=== PATIENT | male | born 1950 | race American Indian/Alaskan Native ===

== ENCOUNTER 2019-07-09 16:19 | Observation (INO) | payer MEDICARE ==
--- NOTE | 2019-07-09 16:47 | Event Note ---
ED Screening Note Date of service: 07/09/19 Time: 16:41 ED Screening Note: Pt presents to ed c/o 2 syncopal episodes within minutes of each other today. He states he was sitting at table eating, then he started feeling dizzy. He states his neice told him he passed out and layed him on floor. He states they did chest compressions on him. When they revived him, he then passed again. Unsure of duration of syncopal episodes. Pt reports feeling better now. He denies any chest pain, sob, n/v/d, focal weakness, vision changes or speech changes. he denies hx of CAD or CVA. +hx of DM. This initial assessment/diagnostic orders/clinical plan/treatment(s) is/are subject to change based on patients health status, clinical progression and re- assessment by fellow clinical providers in the ED. Further treatment and workup at subsequent clinical providers discretion. Patient/guardian urged not to elope from the ED as their condition may be serious if not clinically assessed and managed. Initial orders include: labs, EKG cxr UA CT head
[2019-07-09] MEDS ORDERED: SODIUM CHLORIDE 0.9% 1000 ML 1,000 ML IV ONE (16:48)
--- NOTE | 2019-07-09 17:41 | XRay Report ---
CHEST 2 VIEWS INDICATION / CLINICAL INFORMATION: Syncope. COMPARISON: None available. FINDINGS: SUPPORT DEVICES: None. HEART / MEDIASTINUM: Heart size is within normal limits with left ventricular configuration. Tortuosi ty of the thoracic aorta with atherosclerotic changes. LUNGS / PLEURA: No significant pulmonary or pleural abnormality. No pneumothorax. ADDITIONAL FINDINGS: Degenerative changes are seen in the right shoulder and thoracolumbar spine. IMPRESSION: 1. No acute findings. Signer Name: Michele Mason MD Signed: 07/09/2019 5:37 PM Workstation Name: [id number]
--- NOTE | 2019-07-09 17:46 | Cat Scan Report ---
CT head without contrast HISTORY: Syncope. TECHNIQUE: Axial imaging performed from the skull apex through the skull base without the use of con trast. All CT scans at this location are performed using CT dose reduction for ALARA by means of aut omated exposure control. COMPARISON: None FINDINGS: Parenchyma: No acute intracranial hemorrhage or parenchymal abnormality. Ventricles: There is mild diffuse brain atrophy with commensurate ventricular enlargement which is l ikely age appropriate. Soft tissues: Soft tissues including the orbits appear normal. Bones: No acute osseous abnormality. Sinuses: Sinuses and mastoid air cells are clear. IMPRESSION: No acute abnormality. Signer Name: Ambrosio Anderson MD Signed: 07/09/2019 5:42 PM Workstation Name: [id number]
[2019-07-09 18:25] LABS: Basophils # (Auto) 0.1 K/mm3 (0.0-0.1); Basophils % (Auto) 1.1 % (0.0-1.8); Eosinophils # (Auto) 0.8 K/mm3 (0.0-0.4); Eosinophils % (Auto) 9.5 % (0.0-4.3); Hemoglobin 12.6 gm/dl (11.8-15.2); Lymphocytes % (Auto) 24.2 % (13.4-35.0); Mean Corpuscular HGB Conc 33 % (32-34); Mean Corpuscular Volume 88 fl (84-94); Monocytes # (Auto) 0.3 K/mm3 (0.0-0.8); Monocytes % (Auto) 4.1 % (0.0-7.3); Platelet Count 337 K/mm3 (140-440); Red Blood Count 4.32 M/mm3 (3.65-5.03); Red Cell Distribution Width 14.9 % (13.2-15.2)
[2019-07-09 18:47] LABS: Alanine Aminotransferase 11 units/L (7-56); BUN/Creatinine Ratio 15; Blood Urea Nitrogen 24 mg/dL (9-20); Calcium 9.3 mg/dL (8.4-10.2); Hemolysis Index 4
[2019-07-09] MEDS ORDERED: SODIUM CHLORIDE 0.9% 1000 ML 1,000 ML ONE (21:32)
[2019-07-09 21:52] LABS: Bilirubin,Urine NEG (Negative); Blood,Urine NEG (Negative); Color,Urine Amber (Yellow); Mucus,Urine 2+ /HPF
--- NOTE | 2019-07-09 22:13 | Emergency Department Report ---
ED Syncope HPI - General Chief Complaint: Syncope Stated Complaint: DIZZINESS Time Seen by Provider: 07/09/19 16:41 Source: patient, family Exam Limitations: no limitations - History of Present Illness Initial Comments: 68-year-old male with a past medical history of non-insulin depended diabetes or hypertension presents to the hospital complaining of syncope prior to arrival. Patient states he was eating, felt dizzy, rembers asking for orange juice, then family member states he passed out. He regained consciousness and then passed out again without for an extended amount of time. Family was concerned that he did not have a pulse and initiated chest compressions. Upon EMS arrival Accu- Chek was 248. Patient denies headache, chest pain, shortness breath, nausea, vomiting, diaphoresis, palpitations, calf tenderness, leg edema, history of CAD, PE, or DVT. Patient traveled here 1 week ago from [place] via [place] and his pmd is located back home. - Related Data Allergies/Adverse Reactions: Allergies quinine Allergy (Verified 07/09/19 16:33) Itching ED Review of Systems ROS: Stated complaint: DIZZINESS Other details as noted in HPI Comment: All other systems reviewed and negative ED Past Medical Hx - Past Medical History Previous Medical History?: Yes Hx Hypertension: Yes Hx Diabetes: Yes - Surgical History Past Surgical History?: No - Social History Smoking Status: Current Every Day Smoker Substance Use Type: Marijuana ED Physical Exam - General Limitations: No Limitations - Other Other exam information: General: No acute distress Head: Atraumatic Eyes: normal appearance ENT: Moist mucous membranes Neck: Normal appearance, no midline tenderness Chest: Clear to auscultation bilaterally CV: Regular rate and rhythm Abdomen: Soft, normal bowel sounds, nontender, nondistended, no rebound or guarding Back: Normal inspection Extremity: Normal inspection infection, full range of motion Neuro: Alert O x 3, no facial asymmetry, speech clear, no gross motor sensory deficit, finger nose finger function intact Psych: Appropriate behavior Skin: No rash ED Course Vital Signs 07/09/19 07/09/19 07/09/19 16:31 21:45 21:59 Temperature 97.7 F Pulse Rate 87 63 Respiratory 18 15 15 Rate Blood Pressure 147/84 Blood Pressure 144/84 [Right] O2 Sat by Pulse 97 100 Oximetry ED Medical Decision Making - Lab Data Result diagrams: 07/09/19 17:47 07/09/19 17:47 Lab Results 07/09/19 07/09/19 07/09/19 Range/Units 16:44 17:47 17:47 WBC 8.3 (4.5-11.0) K/mm3 RBC 4.32 (3.65-5.03) M/mm3 Hgb 12.6 (11.8-15.2) gm/dl Hct 38.0 (35.5-45.6) % MCV 88 (84-94) fl MCH 29 (28-32) pg MCHC 33 (32-34) % RDW 14.9 (13.2-15.2) % Plt Count 337 (140-440) K/mm3 Lymph % (Auto) 24.2 (13.4-35.0) % Runnels % (Auto) 4.1 (0.0-7.3) % Eos % (Auto) 9.5 H (0.0-4.3) % Baso % (Auto) 1.1 (0.0-1.8) % Lymph # 2.0 (1.2-5.4) K/mm3 Runnels # 0.3 (0.0-0.8) K/mm3 Eos # 0.8 H (0.0-0.4) K/mm3 Baso # 0.1 (0.0-0.1) K/mm3 Seg Neutrophils % 61.1 (40.0-70.0) % Seg Neutrophils # 5.1 (1.8-7.7) K/mm3 Sodium 138 (137-145) mmol/L Potassium 4.4 (3.6-5.0) mmol/L Chloride 102.3 (98-107) mmol/L Carbon Dioxide 24 (22-30) mmol/L Anion Gap 16 mmol/L BUN 24 H (9-20) mg/dL Creatinine 1.6 H (0.8-1.5) mg/dL Estimated GFR 43 ml/min BUN/Creatinine Ratio 15 % Glucose 227 H (75-100) mg/dL POC Glucose 248 H (70-105) Calcium 9.3 (8.4-10.2) mg/dL Magnesium 2.10 (1.7-2.3) mg/dL Total Bilirubin 0.20 (0.1-1.2) mg/dL AST 12 (5-40) units/L ALT 11 (7-56) units/L Alkaline Phosphatase 127 (35-129) units/L Troponin T < 0.010 (0.00-0.029) ng/mL Total Protein 7.5 (6.3-8.2) g/dL Albumin 4.0 (3.9-5) g/dL Albumin/Globulin Ratio 1.1 % Urine Color (Yellow) Urine Turbidity (Clear) Urine pH (5.0-7.0) Ur Specific Leverett (1.003-1.030) Urine Protein (Negative) mg/dL Urine Glucose (UA) (Negative) mg/dL Urine Ketones (Negative) mg/dL Urine Blood (Negative) Urine Nitrite (Negative) Urine Bilirubin (Negative) Urine Urobilinogen (<2.0) mg/dL Ur Leukocyte Esterase (Negative) Urine WBC (Auto) (0.0-6.0) /HPF Urine RBC (Auto) (0.0-6.0) /HPF U Epithel Cells (Auto) (0-13.0) /HPF Urine Mucus /HPF 07/09/19 Range/Units Unknown WBC (4.5-11.0) K/mm3 RBC (3.65-5.03) M/mm3 Hgb (11.8-15.2) gm/dl Hct (35.5-45.6) % MCV (84-94) fl MCH (28-32) pg MCHC (32-34) % RDW (13.2-15.2) % Plt Count (140-440) K/mm3 Lymph % (Auto) (13.4-35.0) % Runnels % (Auto) (0.0-7.3) % Eos % (Auto) (0.0-4.3) % Baso % (Auto) (0.0-1.8) % Lymph # (1.2-5.4) K/mm3 Runnels # (0.0-0.8) K/mm3 Eos # (0.0-0.4) K/mm3 Baso # (0.0-0.1) K/mm3 Seg Neutrophils % (40.0-70.0) % Seg Neutrophils # (1.8-7.7) K/mm3 Sodium (137-145) mmol/L Potassium (3.6-5.0) mmol/L Chloride (98-107) mmol/L Carbon Dioxide (22-30) mmol/L Anion Gap mmol/L BUN (9-20) mg/dL Creatinine (0.8-1.5) mg/dL Estimated GFR ml/min BUN/Creatinine Ratio % Glucose (75-100) mg/dL POC Glucose (70-105) Calcium (8.4-10.2) mg/dL Magnesium (1.7-2.3) mg/dL Total Bilirubin (0.1-1.2) mg/dL AST (5-40) units/L ALT (7-56) units/L Alkaline Phosphatase (35-129) units/L Troponin T (0.00-0.029) ng/mL Total Protein (6.3-8.2) g/dL Albumin (3.9-5) g/dL Albumin/Globulin Ratio % Urine Color Марина (Yellow) Urine Turbidity Clear (Clear) Urine pH 5.0 (5.0-7.0) Ur Specific [place]rett 1.025 (1.003-1.030) Urine Protein 100 mg/dl (Negative) mg/dL Urine Glucose (UA) Neg (Negative) mg/dL Urine Ketones Tr (Negative) mg/dL Urine Blood Neg (Negative) Urine Nitrite Neg (Negative) Urine Bilirubin Neg (Negative) Urine Urobilinogen 2.0 (<2.0) mg/dL Ur Leukocyte Esterase Neg (Negative) Urine WBC (Auto) 1.0 (0.0-6.0) /HPF Urine RBC (Auto) 3.0 (0.0-6.0) /HPF U Epithel Cells (Auto) 1.0 (0-13.0) /HPF Urine Mucus 2+ /HPF - EKG Data -: EKG Interpreted by Ms EKG shows normal: sinus rhythm, ST-T waves (lvh, rpol, no stemi) Rate: normal (69) - EKG Data When compared to previous EKG there are: previous EKG unavailable - Radiology Data Radiology results: report reviewed CHEST 2 VIEWS INDICATION / CLINICAL INFORMATION: Syncope. COMPARISON: None available. FINDINGS: SUPPORT DEVICES: None. HEART / MEDIASTINUM: Heart size is within normal limits with left ventricular configuration. Tortuosity of the thoracic aorta with atherosclerotic changes. LUNGS / PLEURA: No significant pulmonary or pleural abnormality. No pneumothorax. ADDITIONAL FINDINGS: Degenerative changes are seen in the right shoulder and thoracolumbar spine. IMPRESSION: 1. No acute findings. CT head without contrast HISTORY: Syncope. TECHNIQUE: Axial imaging performed from the skull apex through the skull base without the use of contrast. All CT scans at this location are performed using CT dose reduction for ALARA by means of automated exposure control. COMPARISON: None FINDINGS: Parenchyma: No acute intracranial hemorrhage or parenchymal abnormality. Ventricles: There is mild diffuse brain atrophy with commensurate ventricular enlargement which is likely age appropriate. Soft tissues: Soft tissues including the orbits appear normal. Bones: No acute osseous abnormality. Sinuses: Sinuses and mastoid air cells are clear. IMPRESSION: No acute abnormality. - Medical Decision Making Patient presents to the hospital after syncopal episode. No identified cause after ED workup. Patient is admitted to the hospital for further treatment. Patient did receive IV fluids mild renal insufficiency and possible dehydration. - Differential Diagnosis arrhythmia, [place], unstable angina, PE, anemia, vasovagal Critical Care Time: No Critical care attestation.: If time is entered above; I have spent that time in minutes in the direct care of this critically ill patient, excluding procedure time. ED Disposition Clinical Impression: Syncope, Mild renal insufficiency, HTN (hypertension), Diabetes Disposition: OP ADMIT IP TO THIS HOSP Is pt being admited?: Yes Condition: Stable Time of Disposition: 22:19 (Dr Pineda/hosp)
--- NOTE | 2019-07-09 22:26 | History and Physical Report ---
History of Present Illness Date of examination: 07/09/19 History of present illness: 69 year old man history of hypertension, diabetes, hyperlipidemia was brought to the emergency room [facility] for evaluation of passing out. He stated while he was eating and he got dizzy, drank some orange juice and then he passed out for 2 minutes (family member at bedside. She also stated that the past status second time which is much longer, he had no pulse and her daughter started CPR until paramedics arrived. Blood sugar was 216, other vials were stable. Chest travel 4 days ago from [place] Review Of Systems: Constitutional: no weight loss, fever, chills Ears, eyes, nose, mouth and throat: no nasal congestion, no nasal discharge, no sinus pressure, blurry vision, diplopia Neck: No neck pain or rigidity. Cardiovascular: No palpitations, chest pain Respiratory: No shortness of breath, cough Gastrointestinal: No hematochezia, abdominal pain Genitourinary : no dysuria, frequency Musculoskeletal: no muscle ache , joint pain Integumentary: no rash, no pruritis Neurological: no parathesias, focal weakness Endocrine: no cold or heat intolerance, no polyuria or polydipsia Hematologic/Lymphatic: no easy bruising, no easy bleeding, no gland swelling Allergic/Immunologic: no urticaria, no angioedema. PAST MEDICAL HISTORY:hypertension, diabetes, hyperlipidemia PAST SURGICAL HISTORY: hernia FAMILY HISTORY:hypertension, diabetes SOCIAL HISTORY: +tobacco, + alcohol, + marijuana Medications and Allergies Allergies Allergy/AdvReac Type Severity Reaction Status Date / Time quinine Allergy Itching Verified 07/09/19 16:33 Home Medications Medication Instructions Recorded Confirmed Last Taken Type Aspirin [Aspirin BABY CHEW TAB] 81 mg PO QDAY 07/09/19 07/09/19 Unknown History AtorvaSTATin [Lipitor] 40 mg PO QHS 07/09/19 07/09/19 Unknown History Gabapentin 300 mg PO BID 07/09/19 07/09/19 Unknown History Guanfacine HCl [Guanfacine HCl ER] 1 mg PO QHS 07/09/19 07/09/19 Unknown History Linagliptin [Tradjenta] 5 mg PO QDAY 07/09/19 07/09/19 Unknown History Losartan/Hydrochlorothiazide 1 each PO DAILY 07/09/19 07/09/19 Unknown History [Losartan-Hctz 100-25 mg Tab] NIFEdipine [Nifedipine ER] 60 mg PO DAILY 07/09/19 07/09/19 Unknown History Spironolactone [Aldactone] 25 mg PO QDAY 07/09/19 07/09/19 Unknown History glipiZIDE XL [Glucotrol Xl] 10 mg PO QAM 07/09/19 07/09/19 Unknown History metFORMIN [Glucophage] 2,000 mg PO QDAY 07/09/19 07/09/19 Unknown History Exam - Physical Exam Narrative exam: General Apperance: The patient sitting in bed no acute distress HEENT: Normocephalic, atraumatic. Pupils equally round and reactive to light, extraocular movement intact, and no sclericterus or JVD or thyromegaly or nodule. Neck supple, no carotid bruit, mucous membranes moist, no exudate or erythema Heart: S1-S2, regular is rhythm Lungs: Clear to auscultation bilaterally, breathing comfortable Abdomen: Positive bowel sounds, soft, nontender, nondistended, no organomegaly Extremities: No edema cyanosis clubbing Skin: no rash, nodule, warm and dry Neuro:CN 2 -12 intact, motor/sensory intact, speech is fluent - Constitutional Vitals: Temp Pulse Resp BP Pulse Ox 97.7 F 63 15 144/84 100 07/09/19 16:31 07/09/19 21:45 07/09/19 21:59 07/09/19 21:45 07/09/19 21:45 Results - Labs CBC & Chem 7: 07/10/19 05:41 07/10/19 05:41 Labs: Abnormal lab results 07/09/19 07/09/19 07/09/19 Range/Units 16:44 17:47 17:47 Eos % (Auto) 9.5 H (0.0-4.3) % Eos # 0.8 H (0.0-0.4) K/mm3 BUN 24 H (9-20) mg/dL Creatinine 1.6 H (0.8-1.5) mg/dL Glucose 227 H (75-100) mg/dL POC Glucose 248 H (70-105) - Imaging and Cardiology EKG: image reviewed Chest x-ray: image reviewed CT Scan - head: report reviewed Assessment and Plan Assessment Syncope Renal insufficiency Hypertension Diabetes Hyperlipidemia Plan Admit to medicine Check reticulocyte enzymes, d-dimer, echo, cadrotid doppler Check fingersticks and initiate insulin sliding scale Hold diuretics for now DVT prophylaxis
[2019-07-09] MEDS ORDERED: ONDANSETRON 4 MG/2 ML INJ IV PRN (22:55)
[2019-07-09] MEDS ORDERED: ACETAMINOPHEN 325 MG TAB PO PRN (22:55)
[2019-07-09] MEDS ORDERED: DEXTROSE 50% IN WATER (25GM) 50 ML SYRINGE IV PRN (23:11)
[2019-07-09 23:48] LABS: Creatine Kinase MB 5.2 ng/mL (0.0-4.0)
[2019-07-10 05:32] VITALS: BP 166/83
[2019-07-10 06:47] LABS: Basophils # (Auto) 0.1 K/mm3 (0.0-0.1); Eosinophils # (Auto) 1.1 K/mm3 (0.0-0.4); Eosinophils % (Auto) 14.2 % (0.0-4.3); Hematocrit 34.8 % (35.5-45.6); Hemoglobin 11.8 gm/dl (11.8-15.2); Lymphocytes # (Auto) 2.5 K/mm3 (1.2-5.4); Lymphocytes % (Auto) 32.5 % (13.4-35.0); Mean Corpuscular HGB Conc 34 % (32-34); Mean Corpuscular Volume 88 fl (84-94); Monocytes # (Auto) 0.6 K/mm3 (0.0-0.8); Monocytes % (Auto) 7.4 % (0.0-7.3); Platelet Count 291 K/mm3 (140-440); Red Blood Count 3.96 M/mm3 (3.65-5.03)
[2019-07-10 07:10] LABS: BUN/Creatinine Ratio 18; Blood Urea Nitrogen 24 mg/dL (9-20); Calcium 8.8 mg/dL (8.4-10.2); Hemolysis Index 3
--- NOTE | 2019-07-10 08:20 | Nuclear Medicine Report ---
Nuclear medicine ventilation/perfusion lung scan Indication: Shortness of breath Technique: 19.47 mCi of Xenon-133 were given by inhalation. 4.54 mCi of Tc 99m MAA were given by IV. Findings: Comparison with chest radiograph from 07/09/2019. Wash-in, equilibrium, and wash-out phases of ventilation are normal. No air-trapping is seen. No perfusion defects are noted. Impression: Low probability for pulmonary embolism. Signer Name: Bassam Villa MD Signed: 07/10/2019 8:15 AM Workstation Name: [id number]
--- NOTE | 2019-07-10 09:35 | Cat Scan Report ---
CTA chest with contrast INDICATION : syncope, elevated d-dimer. TECHNIQUE: Axial imaging performed through the chest, with contrast bolus timing set to maximize opa cification of the pulmonary arteries. 3-plane MIP reformatted images were obtained. All CT scans at this location are performed using CT dose reduction for ALARA by means of automated exposure control. 100 mL of intravenous contrast administered. COMPARISON: Chest x-ray from yesterday FINDINGS: Bolus: Contrast bolus timing is adequate. PTE: No filling defect is present to suggest PTE. Mediastinum: There is aneurysmal dilatation of the ascending thoracic aorta measuring 4.6 cm on imag e #202 of series #3. There is also moderate atherosclerotic disease within the coronary arteries. Hea rt size is upper limits of normal. No pathologic mediastinal adenopathy. Lungs: There is mild respiratory motion artifact with streaky bibasilar atelectasis. No consolidatio n or pleural effusion identified. Upper abdomen: Limited imaging of the upper abdomen shows nothing acute. There is mild bilateral ad renal thickening. Bones: Degenerative changes in the spine with nothing acute. IMPRESSION: 1. Negative for PTE. Clear lungs. 2. Incidental aneurysmal dilatation of the ascending thoracic aorta measuring 4.6 cm. Signer Name: Ambrosio Anderson MD Signed: 07/10/2019 9:30 AM Workstation Name: [email or web address]
[2019-07-10] MEDS ORDERED: SPIRONOLACTONE 25 MG TAB PO SCH (10:00)
[2019-07-10] MEDS ORDERED: ASPIRIN 81 MG TAB CHEW PO SCH (10:00)
[2019-07-10] MEDS ORDERED: NIFEdipine XL 60 MG TAB PO SCH (10:00)
[2019-07-10] MEDS ORDERED: GABAPENTIN 300 MG CAP PO SCH (10:00)
[2019-07-10] MEDS ORDERED: ENOXAPARIN 40 MG/0.4 ML INJ SUB-Q SCH (10:00)
[2019-07-10] MEDS: INSULIN LISPRO 100 UNIT/ML SUB-Q SCH ×2 (10:12→12:00)
[2019-07-10] MEDS ORDERED: FLU VACC QUAD 2019-20 (3 YR UP)/PF 60 MCG/0.5 ML SYRINGE IM ONE (12:00)
[2019-07-10] MEDS ORDERED: PNEUMOCOCCAL 23 Valent 0.5 ML VIAL IM ONE (12:00)
--- NOTE | 2019-07-10 13:02 | Vascular Lab Report ---
"DUPLEX DOPPLER ULTRASOUND CAROTID, BILATERAL INDICATION: syncope. FINDINGS: RIGHT CAROTID: Mild atherosclerotic plaque. Right CCA velocity: 94 cm/sec. Right ICA peak systolic velocity: 86 cm/sec. ICA/CCA PSV Ratio: 1.4. Right Vertebral Artery: Antegrade flow. LEFT CAROTID: Mild atherosclerotic plaque. Left CCA velocity: 87 cm/sec. Left ICA peak systolic velocity: 79 cm/sec. ICA/CCA PSV Ratio: 1.2. Left Vertebral Artery: Antegrade flow. IMPRESSION: 1. Right Internal Carotid Artery: Less than 50% diameter stenosis. 2. Left Internal Carotid Artery: Less than 50% diameter stenosis. Velocity criteria are extrapolated from diameter data as defined by the Society of Radiologists in Ul trasound Consensus Conference, Radiology 2003; 229;340-346. Degree of Stenosis (%) || ICA PSV (cm/sec) || Plaque estimate (%) || ICA/CCA PSV Ratio Normal <125 None <2.0 <50 <125 <50 <2.0 50-69 125-230 50 2.0-4.0 70 but less than 100 >230 50 >4.0 Near occlusion High, low, or none visible variable Total occlusion None visible; no lumen N/A Signer Name: Chuck Hitchcock MD Signed: 07/10/2019 12:57 PM Workstation Name: [email or web address]"
--- NOTE | 2019-07-10 15:11 | Discharge Summary ---
Providers - Providers Date of Admission: 07/09/19 22:25 Date of discharge: 07/10/19 Attending physician: CHINA RAMIRES MD Hospitalization Reason for admission: Syncopal episode Condition: Stable Pertinent studies: CT head CTA chest Carotid doppler Echocardiogram -all were unremarkable Hospital course: 68 year old man history of hypertension, diabetes, hyperlipidemia was brought to the emergency room [facility] for evaluation of passing out for about 2 minutes. Blood sugar was 216, other vials were stable. Patient was admitted to the floor and workup was done which were unremarkable for acute findings. Patient was hemodynamically stable and discharged home.Patient likely had vasovagal syncope. Disposition: DC-01 TO HOME OR SELFCARE Time spent for discharge: 32 minutes - Discharge Diagnoses (1) Syncope Status: Acute Qualifiers: Syncope type: vasovagal syncope Qualified Code(s): R55 - Syncope and collapse (2) Diabetes Status: Acute Qualifiers: Diabetes mellitus type: type 2 Diabetes mellitus complication status: without complication (3) HTN (hypertension) Status: Acute Qualifiers: Hypertension type: essential hypertension Qualified Code(s): I10 - Essential (primary) hypertension (4) Mild renal insufficiency Status: Acute Core Measure Documentation - Palliative Care Palliative Care/ Comfort Measures: Not Applicable - Core Measures Any of the following diagnoses?: none Exam - Physical Exam Narrative exam: Not in cardiopulmonary distress. The patient appeared well nourished and normally developed. Vital signs as documented. Head exam is unremarkable. No scleral icterus . Neck is without jugular venous distension, thyromegaly, or carotid bruits. Lungs are clear to auscultation. Cardiac exam reveals regular rate and Rhythm. Abdominal exam reveals normal bowel sounds, nontender, no organomegaly. Extremities are nonedematous and both femoral and pedal pulses are normal. ELEMENTARY SUPERVISOR: Alert and oriented 3. No focal weakness. - Constitutional Vitals: Temp Pulse Resp BP Pulse Ox 98.8 F 74 18 166/83 98 07/10/19 03:52 07/10/19 13:52 07/10/19 05:32 07/10/19 05:32 07/10/19 11:49 Plan Activity: no restrictions Weight Bearing Status: Full Weight Bearing Diet: low salt, diabetic Follow up with: ZA COELLO [Other] - 7 Days Forms: Discharge Signature Page
== END 2019-07-10 16:37 | disposition home or self-care (01) ==
LOC: ED 16:19 → 4A 22:25
PROVIDERS: ADMIT Internal Medicine; ATTEND Internal Medicine
DX: R55 Syncope and collapse (principal); N28.9 Disorder of kidney and ureter, unspecified; I10 Essential (primary) hypertension; E11.9 Type 2 diabetes mellitus without complications; E78.5 Hyperlipidemia, unspecified; F17.200 Nicotine dependence, unspecified, uncomplicated; Z98.890 Other specified postprocedural states; Z79.82 Long term (current) use of aspirin; Z79.84 Long term (current) use of oral hypoglycemic drugs
CPT/HCPCS: 36415; 70450; 71046; 71275; 78582; 80048; 80053; 81001; 82550; 82553; 82962; 83735; 84484; 85025; 85379; 90686; 90732; 93005; 93010; 93306; 93880; 96360; 96372; 99284; A9540; A9558; G0378; J1650; J7030; Q9967